=== PATIENT | male | born 1995 | race Caucasian/White ===

== ENCOUNTER 2017-08-04 12:47 | Emergency (ER) | payer OTHER ==
[~2017-08-04] VITALS: Ht 190.5 cm; Wt 117.0 kg
[2017-08-04 12:54] VITALS: BP 149/85; PULSE 116; RESP 20; TEMP 98.6; O2SAT 96
[2017-08-04] MEDS ORDERED: SODIUM CHLOR 0.9% 1000 ML INJ 1,000 ML IV SCH (13:03)
[2017-08-04] MEDS ORDERED: ADDE20 PO (13:06)
--- NOTE | 2017-08-04 13:06 | PD ---
HPI Chief Complaint: GI Complaint Time Seen by Provider: 12:59 Travel History International Travel<30 days: No Contact w/Intl Traveler<30days: No Traveled to known affect area: No History of Present Illness HPI 22-year-old male here for evaluation of nausea and vomiting. Patient reports that the symptoms started at around 630 this morning and he has had several episodes of bilious/clear/nonbloody emesis. He reports that he feels warm. He occasionally has abdominal cramping which is diffuse, and moderate. No history of abdominal surgeries. No diarrhea. He had about 2 beers to drink last night. Denies illicit drug use. PFSH Social History Tobacco Use: No Allergies-Medications (Allergen,Severity, Reaction): Coded Allergies: No Known Allergies (Unverified , 08/04/17) Reported Meds & Prescriptions Reported Meds & Active Scripts Active Zofran Odt (Ondansetron Odt) 4 Mg Tab 4 Mg SL Q8HR PRN Reported Adderall (Amphetamine-Dextroamphetamine) 20 Mg Tab 20 Mg PO DAILY Avoid late evening doses. Space doses at least 4 to 6 hours if more than once/day dosing. Review of Systems Except as stated in HPI: all other systems reviewed are Neg Physical Exam Narrative GENERAL: Well-developed, well-nourished, no apparent distress. SKIN: Focused skin assessment warm/dry. HEAD: Atraumatic. Normocephalic. EYES: Pupils equal and round. No scleral icterus. No injection or drainage. ENT: No nasal bleeding or discharge. Mucous membranes pink and dry. NECK: Trachea midline. No JVD. CARDIOVASCULAR: Regular rate and rhythm. RESPIRATORY: No accessory muscle use. Clear to auscultation. Breath sounds equal bilaterally. GASTROINTESTINAL: Abdomen soft, non-tender, nondistended. MUSCULOSKELETAL: No obvious deformities. No clubbing. No cyanosis. No edema. NEUROLOGICAL: Awake and alert. No obvious cranial nerve deficits. Motor grossly within normal limits. Normal speech. PSYCHIATRIC: Appropriate mood and affect; insight and judgment normal. Data Data Last Documented VS Vital Signs Date Time Temp Pulse Resp B/P (MAP) Pulse Ox O2 Delivery O2 Flow Rate FiO2 08/04/17 15:47 08/04/17 15:13 98.1 98 16 99 Room Air Orders Orders Complete Blood Count With Diff (08/04/17 13:03) Comprehensive Metabolic Panel (08/04/17 13:03) Lipase (08/04/17 13:03) Iv Access Insert/Monitor (08/04/17 13:03) Ecg Monitoring (08/04/17 13:03) Oximetry (08/04/17 13:03) Ondansetron Inj (Zofran Inj) (08/04/17 13:15) Sodium Chlor 0.9% 1000 Ml Inj (Ns 1000 M (08/04/17 13:03) Sodium Chloride 0.9% Flush (Ns Flush) (08/04/17 13:15) Ct Abd/Pel W Iv Contrast(Rout) (08/04/17 ) Diatrizoate Liq ( Gastronanette Liq) (08/04/17 14:00) Oral Contrast - Adult (08/04/17 13:52) Ondansetron Inj (Zofran Inj) (08/04/17 14:30) Sodium Chlor 0.9% 1000 Ml Inj (Ns 1000 M (08/04/17 14:30) Iohexol 350 Inj (Omnipaque 350 Inj) (08/04/17 14:58) Ed Discharge Order (08/04/17 15:24) Labs Laboratory Tests Test 08/04/17 13:10 White Blood Count 17.4 TH/MM3 Red Blood Count 5.45 MIL/MM3 Hemoglobin 16.2 GM/DL Hematocrit 48.8 % Mean Corpuscular Volume 89.4 FL Mean Corpuscular Hemoglobin 29.7 PG Mean Corpuscular Hemoglobin Concent 33.2 % Red Cell Distribution Width 13.2 % Platelet Count 302 TH/MM3 Mean Platelet Volume 8.1 FL Neutrophils (%) (Auto) 80.3 % Lymphocytes (%) (Auto) 7.0 % Monocytes (%) (Auto) 8.9 % Eosinophils (%) (Auto) 1.0 % Basophils (%) (Auto) 2.8 % Neutrophils # (Auto) 14.0 TH/MM3 Lymphocytes # (Auto) 1.2 TH/MM3 Monocytes # (Auto) 1.5 TH/MM3 Eosinophils # (Auto) 0.2 TH/MM3 Basophils # (Auto) 0.5 TH/MM3 CBC Comment DIFF FINAL Differential Comment Blood Urea Nitrogen 16 MG/DL Creatinine 0.86 MG/DL Random Glucose 97 MG/DL Total Protein 7.7 GM/DL Albumin 3.6 GM/DL Calcium Level 8.6 MG/DL Alkaline Phosphatase 126 U/L Aspartate Amino Transf (AST/SGOT) 19 U/L Alanine Aminotransferase (ALT/SGPT) 30 U/L Total Bilirubin 0.8 MG/DL Sodium Level 137 MEQ/L Potassium Level 4.1 MEQ/L Chloride Level 102 MEQ/L Carbon Dioxide Level 27.7 MEQ/L Anion Gap 7 MEQ/L Estimat Glomerular Filtration Rate 109 ML/MIN Lipase 140 U/L MDM Medical Decision Making Medical Screen Exam Complete: Yes Emergency Medical Condition: Yes Differential Diagnosis Nausea and vomiting, dehydration, gastroenteritis, food poisoning, bowel obstruction less likely Narrative Course Initial vital signs show heart rate 116, blood pressure 149/85, pulse ox 98% on room air, oral temperature 98.6F. CBC: WBC 17.4, hemoglobin 16.2, hematocrit 40.8, platelets 302, neutrophils 80%. CMP is essentially unremarkable. Lipase is 140. Patient was given a liter of normal saline and IV Zofran and on reassessment he has some mild periumbilical tenderness. The patient complains of some gas type pain in this region. Because of this, CT abdomen and pelvis will be ordered to rule out appendicitis. CT abdomen pelvis: CONCLUSION: 1. No acute findings. Appendix unremarkable on CT. Mild fatty liver. Mild adrenal enlargement bilaterally. Patient was made aware of all findings. He is resting comfortably and tolerating clear liquids in the emergency department after receiving Zofran. Heart rate improved to 90 2:07 liters normal saline IV. He feels comfortable going home. He likely has a food poisoning. He is stable for discharge home with outpatient follow-up with his primary care physician this week. He is advised on when to return to the emergency department. He verbalizes understanding and agreement with plan. Diagnosis Primary Impression: Nausea and vomiting Qualified Codes: R11.2 - Nausea with vomiting, unspecified Referrals: Primary Care Physician 3 days Additional Instructions: Follow-up with a primary care physician this week. Return to the emergency department for worsening symptoms or any other concerns. Scripts Ondansetron Odt (Zofran Odt) 4 Mg Tab 4 MG SL Q8HR Y for Nausea/Vomiting, #20 TAB 0 Refills Prov: Pedro Jones MD 08/04/17 Disposition: 01 DISCHARGE HOME Condition: Stable Pedro Jones MD Aug 04, 2017 13:06
[2017-08-04] MEDS ORDERED: ONDANSETRON HCL 4 MG/2 ML VIAL IVP ONE (13:15)
[2017-08-04] MEDS ORDERED: SODIUM CHLORIDE 0.9% FLUSH 10 ML FLUSH IV FLUSH PRN (13:15)
[2017-08-04 13:21] VITALS: O2SAT 98
[2017-08-04 13:21] LABS: BASOPHIL # 0.5 TH/MM3 (0-0.2); BASOPHIL % 2.8 % (0.0-2.0); EOSINOPHIL # 0.2 TH/MM3 (0-0.4); HEMATOCRIT 48.8 % (39.0-51.0); HEMOGLOBIN 16.2 GM/DL (13.0-17.0); LYMPHOCYTE # 1.2 TH/MM3 (1.0-4.8); MEAN CELL VOLUME 89.4 FL (80.0-100.0); MEAN CORPUSCULAR HEMOGLOBIN 29.7 PG (27.0-34.0); MEAN CORPUSCULAR HGB CONC 33.2 % (32.0-36.0); MEAN PLATELET VOLUME 8.1 FL (7.0-11.0); MONO % 8.9 % (0.0-8.0); MONOCYTE # 1.5 TH/MM3 (0-0.9); NEUT % 80.3 % (16.0-70.0); PLATELET COUNT 302 TH/MM3 (150-450); RED BLOOD COUNT 5.45 MIL/MM3 (4.50-5.90); RED CELL DISTRIBUTION WIDTH 13.2 % (11.6-17.2); WHITE BLOOD COUNT 17.4 TH/MM3 (4.0-11.0)
[2017-08-04 13:29] LABS: CHLORIDE 102 MEQ/L (98-107); SODIUM (NA) 137 MEQ/L (136-145)
[2017-08-04 13:32] LABS: ALBUMIN 3.6 GM/DL (3.4-5.0); CALCIUM 8.6 MG/DL (8.5-10.1)
[2017-08-04 13:33] LABS: BICARBONATE 27.7 MEQ/L (21.0-32.0); BLOOD UREA NITROGEN 16 MG/DL (7-18); GLUCOSE,RANDOM 97 MG/DL (74-106)
[2017-08-04 13:35] LABS: ALT (GPT) 30 U/L (12-78); AST (GOT) 19 U/L (15-37)
[2017-08-04 13:36] LABS: CREATININE 0.86 MG/DL (0.60-1.30); GLOMERULAR FILTRATION RATE 109 ML/MIN (>89)
[2017-08-04 13:37] LABS: TOTAL BILIRUBIN ADULT 0.8 MG/DL (0.2-1.0); TOTAL PROTEIN 7.7 GM/DL (6.4-8.2)
[2017-08-04 13:38] LABS: ALKALINE PHOSPHATASE 126 U/L (45-117)
[2017-08-04] MEDS ORDERED: DIATRIZOATE MEGLUM/DIATRIZOATE SOD 9 ML CUP PO ONE (14:00)
[2017-08-04] MEDS ORDERED: SODIUM CHLOR 0.9% 1000 ML INJ 1,000 ML IV ONE (14:30)
[2017-08-04] MEDS ORDERED: ONDANSETRON HCL 4 MG/2 ML VIAL IV PUSH ONE (14:30)
[2017-08-04] MEDS ORDERED: IOHEXOL 350 MG/ML 10 ML VIAL (for RAD DIAG) IVCONTRAST ONE (14:58)
[2017-08-04 15:13] VITALS: BP 137/71; PULSE 98; RESP 16; TEMP 98.1; O2SAT 99
--- NOTE | 2017-08-04 15:13 | RADRPT ---
EXAM DATE/TIME: 08/04/2017 14:53 [facility] COMPARISON: No previous studies available for comparison. INDICATIONS : Vomiting. Right lower quadrant pain. IV CONTRAST: 95 cc Omnipaque 350 (iohexol) IV ORAL CONTRAST: Prescribed oral contrast ingested. RADIATION DOSE: 22.04 CTDIvol (mGy) MEDICAL HISTORY : None SURGICAL HISTORY : None. ENCOUNTER: Initial ACUITY: 1 day PAIN SCALE: 5/10 LOCATION: Right lower quadrant TECHNIQUE: Volumetric scanning of the abdomen and pelvis was performed. Using automated exposure control and ad justment of the mA and/or kV according to patient size, radiation dose was kept as low as reasonably achievable to obtain optimal diagnostic quality images. DICOM format image data is available electro nically for review and comparison. FINDINGS: Minimal basilar atelectasis. Mild fatty liver. Spleen, kidneys and pancreas unremarkable. Mild symmet marianne adrenal enlargement. No gallstones or biliary ductal dilatation identified. No inflammatory changes in the right lower quadrant. Appendix appears normal. No renal calculi or obs tructive uropathy. No acute bony abnormalities. CONCLUSION: 1. No acute findings. Appendix unremarkable on CT. Mild fatty liver. Mild adrenal enlargement bilater ally. Priyank Rollins MD on August 04, 2017 at 15:08 Board Certified Radiologist. This report was verified electronically.
[2017-08-04] MEDS ORDERED: ZOFR4TAB3 SL (15:24)
== END 2017-08-04 15:49 | disposition home or self-care (01) ==
LOC: PHED 12:47
DX: R11.2 Nausea with vomiting, unspecified (principal)
CPT/HCPCS: 74177; 80053; 83690; 85025; 96361; 96374; 96376; 99284; J2405; J7030; Q9963; Q9967

== ENCOUNTER 2017-09-04 12:37 | Emergency (ER) | payer OTHER ==
[~2017-09-04] VITALS: Ht 190.5 cm; Wt 117.0 kg
[~2017-09-04 12:37] MED LIST: ADDE20 PO; ZOFR4TAB3 SL
[2017-09-04 12:40] VITALS: BP 165/87; PULSE 100; RESP 18; TEMP 97.6; O2SAT 99
[2017-09-04 13:23] LABS: AUTOMATED NEUTROPHIL # 11.1 TH/MM3 (1.8-7.7); BASOPHIL # 0.6 TH/MM3 (0-0.2); BASOPHIL % 3.8 % (0.0-2.0); EOSINOPHIL # 0.1 TH/MM3 (0-0.4); EOSINOPHIL % 0.8 % (0.0-4.0); HEMATOCRIT 44.6 % (39.0-51.0); HEMOGLOBIN 14.5 GM/DL (13.0-17.0); LYMPH % 19.5 % (9.0-44.0); LYMPHOCYTE # 3.2 TH/MM3 (1.0-4.8); MEAN CELL VOLUME 90.2 FL (80.0-100.0); MEAN CORPUSCULAR HEMOGLOBIN 29.4 PG (27.0-34.0); MEAN CORPUSCULAR HGB CONC 32.6 % (32.0-36.0); MEAN PLATELET VOLUME 8.2 FL (7.0-11.0); MONO % 7.7 % (0.0-8.0); MONOCYTE # 1.3 TH/MM3 (0-0.9); NEUT % 68.2 % (16.0-70.0); PLATELET COUNT 274 TH/MM3 (150-450); RED BLOOD COUNT 4.94 MIL/MM3 (4.50-5.90); RED CELL DISTRIBUTION WIDTH 13.1 % (11.6-17.2); WHITE BLOOD COUNT 16.3 TH/MM3 (4.0-11.0)
--- NOTE | 2017-09-04 13:28 | PD ---
HPI . Cyst Chief Complaint: Complaint Time Seen by Provider: 12:50 Travel History International Travel<30 days: No Contact w/Intl Traveler<30days: No Traveled to known affect area: No History of Present Illness HPI Patient presents with a 3 day history of a cyst in his perineum. He states that it became acutely worse last night. He describes a shooting/stabbing pain which he currently rates 9/10. Pain is improved by lying supine very still. Pain is exacerbated by any sort of movement. He denies any associated symptoms such as fever, nausea, drainage. He does report a couple of similar episodes but they were not as severe and they spontaneously drained. He did not seek medical care. COUNTS INCLUDE 234 BEDS AT THE [facility] Past Medical History ADHD: Yes Diminished Hearing: No Immunizations Current: Yes Tetanus Vaccination: < 5 Years Influenza Vaccination: No Past Surgical History Surgical History: No Previous Surgery Social History Alcohol Use: Yes (SOCIAL) Tobacco Use: No Substance Use: No Allergies-Medications (Allergen,Severity, Reaction): Coded Allergies: No Known Allergies (Unverified , 09/04/17) Reported Meds & Prescriptions Reported Meds & Active Scripts Active Reported Adderall (Amphetamine-Dextroamphetamine) 20 Mg Tab 20 Mg PO DAILY Avoid late evening doses. Space doses at least 4 to 6 hours if more than once/day dosing. Review of Systems Except as stated in HPI: all other systems reviewed are Neg General / Constitutional: No: Fever, Chills Gastrointestinal: No: Nausea, Vomiting Physical Exam Narrative GENERAL: Awake and alert and in no acute distress. SKIN: Warm and dry. HEAD: Normocephalic/atraumatic. EYES: Pupils are equal. Extraocular movements are intact. NECK: Normal range of motion. CARDIOVASCULAR: Regular rate and rhythm. RESPIRATORY: Nonlabored respirations. : Normal male. Testicles have a normal lie and are nontender. There is no tenderness to palpation of the epididymis. There is no hernia.. There is a fluctuant abscess in the perineal area between the testicles and the anus. It is about the size of a quarter. It is very tender. MUSCULOSKELETAL: Atraumatic. NEUROLOGICAL: Nonfocal. PSYCHIATRIC: Appropriate mood and affect. Data Data Last Documented VS Vital Signs Date Time Temp Pulse Resp B/P (MAP) Pulse Ox O2 Delivery O2 Flow Rate FiO2 09/04/17 12:40 97.6 100 18 165/87 (113) [address] Abd/Pel W Iv Contrast(Rout) (09/04/17 12:50) Basic Metabolic Panel (Bmp) (09/04/17 12:50) Complete Blood Count With Diff (09/04/17 12:50) Lactic Acid (09/04/17 12:50) Blood Culture (09/04/17 12:50) ^ Saline Lock (09/04/17 12:50) Ondansetron Inj (Zofran Inj) (09/04/17 13:30) Morphine Inj (Morphine Inj) (09/04/17 13:30) Vancomycin Inj (Vancomycin Inj) (09/04/17 13:30) Iohexol 350 Inj (Omnipaque 350 Inj) (09/04/17 13:33) Lidocai-Epi 1%-1:100,000 Inj (Xylocaine- (09/04/17 14:15) Labs Laboratory Tests Test 09/04/17 13:10 09/04/17 13:15 White Blood Count 16.3 TH/MM3 Red Blood Count 4.94 MIL/MM3 Hemoglobin 14.5 GM/DL Hematocrit 44.6 % Mean Corpuscular Volume 90.2 FL Mean Corpuscular Hemoglobin 29.4 PG Mean Corpuscular Hemoglobin Concent 32.6 % Red Cell Distribution Width 13.1 % Platelet Count 274 TH/MM3 Mean Platelet Volume 8.2 FL Neutrophils (%) (Auto) 68.2 % Lymphocytes (%) (Auto) 19.5 % Monocytes (%) (Auto) 7.7 % Eosinophils (%) (Auto) 0.8 % Basophils (%) (Auto) 3.8 % Neutrophils # (Auto) 11.1 TH/MM3 Lymphocytes # (Auto) 3.2 TH/MM3 Monocytes # (Auto) 1.3 TH/MM3 Eosinophils # (Auto) 0.1 TH/MM3 Basophils # (Auto) 0.6 TH/MM3 CBC Comment DIFF FINAL Differential Comment Blood Urea Nitrogen 12 MG/DL Creatinine 0.90 MG/DL Random Glucose 94 MG/DL Calcium Level 8.9 MG/DL Sodium Level 138 MEQ/L Potassium Level 3.7 MEQ/L Chloride Level 106 MEQ/L Carbon Dioxide Level 25.3 MEQ/L Anion Gap 7 MEQ/L Estimat Glomerular Filtration Rate 104 ML/MIN Lactic Acid Level 1.7 mmol/L [facility] Medical Decision Making Medical Screen Exam Complete: Yes Emergency Medical Condition: Yes Differential Diagnosis My differential diagnosis closed but is not limited to abscess, cyst, lipoma Narrative Course This patient presents with a perineal abscess. Studies are being done to rule out significant perirectal or intra-abdominal extension. If those studies are reassuring, the abscess will be drained here. Vital Signs Date Time Temp Pulse Resp B/P (MAP) Pulse Ox O2 Delivery O2 Flow Rate FiO2 09/04/17 12:40 97.6 100 18 165/87 (113) 99 CBC & BMP Diagram 09/04/17 13:10 Calcium Level 8.9, LA 1.7 Last Impressions Abdomen/Pelvis CT 09/04/17 1250 Signed Impressions: Service Date/Time: Monday, September 04, 2017 13:21 - CONCLUSION: 1. Scrotal swelling without definite fluid or air collection noted. 2. Fatty liver. 3. Stable bilateral adrenal enlargement suggesting possible adrenal hyperplasia. Ciaran Cope MD He does meet SIRS and septic criteria. However, he is not severely septic. Procedures Procedure Narrative INCISION AND DRAINAGE OF ABSCESS: The area was prepped and was sterilely draped. A subcutaneous wheal of 1 % Xylocaine with epi with a total number 8 mL was used to anesthetize the area properly. A number 11 scalpel was used to make a 1-cm incision across the area of the abscess. The abscess drained foul smelling bloody fluid.. Complex loculations were broken down. One inch iodoform packing was placed in the wound. Sterile dressing applied. Patient advised to have packing removed in two days. Sepsis Criteria SIRS Criteria (2 or more): Heart rate over 90, WBC > 70631, < 4000 or > 10% bands Sepsis Criteria (SIRS+source): Infect source susp/known Criteria Outcome: Meets SIRS criteria, Meets sepsis criteria Diagnosis Primary Impression: Sepsis Qualified Codes: A41.9 - Sepsis, unspecified organism Additional Impression: Perineal abscess Patient Instructions: Abscess Incision and Drainage (DC), General Instructions , Narcotic given in the ED Med/Other Pt SpecificInfo: Prescription(s) given Scripts Tramadol (Ultram) 50 Mg Tab 50 MG PO Q4H Y for PAIN, #12 TAB 0 Refills Prov: Tamra Gamble MD 09/04/17 Sulfamethoxazole-Trimethoprim (Bactrim DS) 800-160 Mg Tab 1 TAB PO BID for Infection, #14 TAB 0 Refills Prov: Tamra Gamble MD 09/04/17 Disposition: 01 DISCHARGE HOME Condition: Stable Tamra Gamble MD Sep 04, 2017 13:27
[2017-09-04] MEDS ORDERED: MORPHINE SULFATE 4 MG/ML INJ IV ONE (13:30)
[2017-09-04] MEDS ORDERED: ONDANSETRON HCL 4 MG/2 ML VIAL IV PUSH ONE (13:30)
[2017-09-04] MEDS ORDERED: VANCOMYCIN INJ 1,000 MG in SODIUM CHLOR 0.9% 250 ML INJ 250 ML IV ONE (13:30)
[2017-09-04] MEDS ORDERED: IOHEXOL 350 MG/ML 10 ML VIAL (for RAD DIAG) IVCONTRAST ONE (13:33)
[2017-09-04 13:36] LABS: CALCIUM 8.9 MG/DL (8.5-10.1)
[2017-09-04 13:37] LABS: BICARBONATE 25.3 MEQ/L (21.0-32.0)
[2017-09-04 13:40] LABS: CREATININE 0.9 MG/DL (0.60-1.30)
--- NOTE | 2017-09-04 13:55 | RADRPT ---
EXAM DATE/TIME: 09/04/2017 13:21 [facility] COMPARISON: CT ABDOMEN & PELVIS W CONTRAST, August 04, 2017, 14:53. INDICATIONS : Left scrotum pain. Evaluate for abscess. Rule out Maryann's gangrene. IV CONTRAST: 85 cc Omnipaque 350 (iohexol) IV ORAL CONTRAST: No oral contrast ingested. RADIATION DOSE: 21.27 CTDIvol (mGy) MEDICAL HISTORY : None SURGICAL HISTORY : None. ENCOUNTER: Initial ACUITY: 1 day PAIN SCALE: 9/10 LOCATION: Left inguinal TECHNIQUE: Volumetric scanning of the abdomen and pelvis was performed. Using automated exposure control and ad justment of the mA and/or kV according to patient size, radiation dose was kept as low as reasonably achievable to obtain optimal diagnostic quality images. DICOM format image data is available electro nically for review and comparison. FINDINGS: LOWER LUNGS: The visualized lower lungs are clear. LIVER: The liver demonstrates fatty infiltration There is no dilation of the biliary tree. No calcified gal lstones. SPLEEN: Normal size without lesion. PANCREAS: Within normal limits. KIDNEYS: Normal in size and shape. There is no mass, stone or hydronephrosis. ADRENAL GLANDS: The adrenal glands are slightly prominent bilaterally but maintain their adreniform shapes suggesting possible adrenal hyperplasia. VASCULAR: There is no aortic aneurysm. BOWEL/MESENTERY: The stomach, small bowel, and colon demonstrate no acute abnormality. There is no free intraperitone al air or fluid. ABDOMINAL WALL: Within normal limits. RETROPERITONEUM: There is no lymphadenopathy. BLADDER: No wall thickening or mass. REPRODUCTIVE: Some scrotal swelling is noted. No air is identified to suggest abscess. Ultrasound may be helpful fo r further evaluation of the scrotum if clinically indicated. INGUINAL: There is no lymphadenopathy or hernia. MUSCULOSKELETAL: Within normal limits for patient age. CONCLUSION: 1. Scrotal swelling without definite fluid or air collection noted. 2. Fatty liver. 3. Stable bilateral adrenal enlargement suggesting possible adrenal hyperplasia. Ciaran Cope MD on September 04, 2017 at 13:46 Board Certified Radiologist. This report was verified electronically.
[2017-09-04] MEDS ORDERED: LIDOCAINE 1%/EPINEPHrine 1:100,000 SOLN 20 ML VIAL INFIL ONE (14:15)
[2017-09-04 14:30] VITALS: RESP 16
[2017-09-04] MEDS ORDERED: BACT800T5 PO (14:32)
[2017-09-04] MEDS ORDERED: TRAM50 PO (14:32)
[2017-09-04 14:50] VITALS: BP 147/96
== END 2017-09-04 15:59 | disposition home or self-care (01) ==
LOC: PHED 12:37
DX: A41.9 Sepsis, unspecified organism (principal); L02.215 Cutaneous abscess of perineum; K76.0 Fatty (change of) liver, not elsewhere classified; E27.8 Other specified disorders of adrenal gland; F90.9 Attention-deficit hyperactivity disorder, unspecified type; Z79.899 Other long term (current) drug therapy
CPT/HCPCS: 10061; 74177; 80048; 83605; 85025; 87040; 96365; 96366; 96375; 99284; J2270; J2405; J3370; J7050; Q9967